=== PATIENT | female | born 1945 | race Caucasian/White ===

== ENCOUNTER → 2017-05-02 | Outpatient (CLI) | payer MEDICARE, SELFPAY | PROVIDERS: Visit Provider Obstetrics & Gynecology Gynecology | DX: Z12.31 Encounter for screening mammogram for malignant neoplasm of breast (principal) | CPT/HCPCS: 77067; G0202 ==

== ENCOUNTER → 2018-05-09 10:12 | Outpatient (CLI) | payer MEDICARE, SELFPAY ==
--- NOTE | 2018-05-09 10:16 | MM_ITS ---
MM Dig screening mamm BI w/CAD CAD Screening COMPARISON: Digital mammograms with CAD 05/02/2017 and 04/15/2016 INDICATION: There is a history of breast cancer in patient's paternal grandmother. TECHNIQUE: Standard CC and MLO images were obtained. R2 CAD reviewed. FINDINGS: Moderate fibroglandular densities are seen in the central portions and upper outer quadrants of both breasts. The findings are bilateral and symmetrical. There is a mole marker right breast. There is minimal arterial calcification in each breast. There is no suspicious lesion and there are no suspicious microcalcifications. IMPRESSION: Fibrofatty parenchyma with no suspicious lesion seen BI-RADS Category: 2 Benign Finding(s) RECOMMENDED FOLLOW-UP: 1YR - 1 YEAR FOLLOW-UP (A letter has been sent to the patient regarding results of the study.)
== END ==
PROVIDERS: PCP Family Medicine; Visit Provider Obstetrics & Gynecology Gynecology
DX: Z12.31 Encounter for screening mammogram for malignant neoplasm of breast (principal)
CPT/HCPCS: 77067

== ENCOUNTER → 2019-06-05 09:43 | Outpatient (CLI) | payer MEDICARE, SELFPAY ==
--- NOTE | 2019-06-05 09:47 | MM_ITS ---
PROCEDURE: MM DIG SCREENING MAMM BI W/CAD CLINICAL INDICATION: SCREENING There is a history of breast cancer patient's paternal grandmother. COMPARISON: [facility] DIG MAMM-SCREEN CHET from 04/15/2016 [facility] DIG MAMM-SCREEN CHET W/CAD from 05/02/2017 [facility] MM Dig screening mamm BI w/CAD from 05/09/2018 TECHNIQUE: Standard CC and MLO images and 3D Tomosinthisis was obtained. R2 CAD reviewed. FINDINGS: Moderate diffuse fibroglandular densities are seen in both breasts. The findings of bilateral and symmetrical. There is minimal arterial calcification in each breast. There is no new or suspicious lesion in either breast and no suspicious microcalcifications. Arnulfo images were reviewed. IMPRESSION: Fibrofatty parenchyma with no suspicious lesions seen BI-RAD Category: 2 Benign Finding(s) FOLLOW-UP: 1YR 1 Year Follow-up (A letter has been sent to the patient regarding results of the study.) Dictated by: Dr. Jaron Marsh MD 06/05/2019 12:[address] Jaron Marsh MD in [place] 06/05/2019 12:38
== END ==
PROVIDERS: PCP Family Medicine; Visit Provider Obstetrics & Gynecology Gynecology
DX: Z12.31 Encounter for screening mammogram for malignant neoplasm of breast (principal)
CPT/HCPCS: 77063; 77067

== ENCOUNTER → 2020-07-03 12:50 | Outpatient (CLI) | payer MEDICARE, SELFPAY ==
--- NOTE | 2020-07-03 12:54 | MM_ITS ---
PROCEDURE: MM DIG SCREENING MAMM BI W/CAD Digital Breast Tomosynthesis Included CLINICAL INDICATION: SCREENING There is a history of breast cancer in the patient's paternal grandmother. COMPARISON: MG [facility] DIG MAMM-SCREEN CHET W/CAD from 05/02/2017 MG [facility] MM Dig screening mamm BI w/CAD from 05/09/2018 MG MM DIG SCREENING MAMM BI W/CAD from 06/05/2019 TECHNIQUE: Standard CC and MLO images and 3D Tomosynthesis was obtained. R2 CAD reviewed. FINDINGS: Moderate diffuse fibroglandular densities are seen in both breasts. There is minimal arterial calcification left breast. There are couple of benign-appearing microcalcifications right breast. There is no suspicious lesion in either breast and no suspicious microcalcifications. CAD markings were reviewed and they appear to be benign. There is no suspicious lesion in either breast and no suspicious microcalcifications. IMPRESSION: Moderate breast density with no suspicious lesions seen BI-RAD Category: 2 Benign Finding(s) FOLLOW-UP: 1YR 1 Year Follow-up (A letter has been sent to the patient regarding results of the study.) Dictated by: Dr. Jaron Marsh MD 07/06/2020 21:26 Dr. Jaron Marsh MD in [place] 07/06/2020 21:26
== END ==
PROVIDERS: PCP Family Medicine; Visit Provider Obstetrics & Gynecology Gynecology
DX: Z12.31 Encounter for screening mammogram for malignant neoplasm of breast (principal)
CPT/HCPCS: 77063; 77067

== ENCOUNTER → 2020-12-15 09:24 | Outpatient (CLI) | payer MEDICARE, SELFPAY ==
--- NOTE | 2020-12-15 09:31 | US_ITS ---
PROCEDURE: US KIDNEY CLINICAL INDICATION: STAGE 3B CHRONIC KIDNEY DISEASE COMPARISON: No exams were available for comparison FINDINGS: The right kidney is 9xx4 cm. There is bilateral renal cortical thinning. No hydronephrosis or renal mass. Cortical scars are noted. Unremarkable echogenicity. The left kidney is 8 x 4 x 4 cm. Cortical scarring and cortical thinning noted. No hydronephrosis or renal mass. IMPRESSION: Bilateral renal cortical scarring and thinning. Dictated by: Tin Brush MD 12/15/2020 15:20 Tin Brush MD in [place] 12/15/2020 15:20
--- NOTE | 2020-12-15 09:39 | CA_ITS ---
APPROVED REPORT Senior Sous Chef: SHARON Study Quality: Adequate Indications: Stage 3 chronic kidney disease Risk Factors Hypertension Hyperlipidemia Renal Artery Doppler Origin (R) 280.6/ cm/sec Proximal (R) 280.6/ cm/sec Mid (R) 111.2/ cm/sec Distal (R) 122.8/ cm/sec Renal Aorta Ratio (R) 2.62 Segmental A. (R) 43.2/14.4 cm/sec RI: 0.66 Segmental A. Sup (R) 38.4/12.5 cm/sec Segmental A. Mid (R) 43.2/14.4 cm/sec Segmental A. Inf (R) 31.7/11.5 cm/sec Origin (L) 144.8/ cm/sec Proximal (L) 81.9/ cm/sec Mid (L) 67.9/ cm/sec Distal (L) 102.6/ cm/sec Renal Aorta Ratio (L) 1.35 Segmental A. (L) 64.9/24.7 cm/sec RI: 0.61 Segmental A. Sup (L) 45.3/13.4 cm/sec Segmental A. Mid (L) 63.9/20.6 cm/sec Segmental A. Inf (L) 64.9/24.7 cm/sec Renal Measurements Kidney Size (R) 8.3x5.4 cm Cortical Thickness (R) 1.1 cm Kidney Size (L) 7.2x5.3 cm Cortical Thickness (L) 1.1 cm Findings Study suggests >60% stenosis of the right renal artery. Study suggests no stenosis of the left renal artery. Conclusion Study suggests >60% stenosis of the right renal artery. Study suggests no stenosis of the left renal artery. Electronically signed by : Tin Brush MD 12/15/2020 17:05:30
== END ==
PROVIDERS: PCP Family Medicine; Visit Provider Family Medicine
DX: N18.32 Chronic kidney disease, stage 3b (principal); I10 Essential (primary) hypertension
CPT/HCPCS: 76770; 93976

== ENCOUNTER → 2021-01-13 10:42 | Outpatient (CLI) | payer MEDICARE, SELFPAY ==
--- NOTE | 2021-01-13 10:45 | CA_ITS ---
APPROVED REPORT EXAM: Comprehensive 2D, Doppler, and color-flow Echocardiogram Bean Dumper: Lisa Hernandez RVT Ht: 5 ft 3 in Wt: 155lbs BSA: 1.74 BP: 133/76 mmHg Indications: CP,ABN EKG,SOA,HTN,HLD 2D Dimensions LVOT 1.94 cm (M/F) 1.5-2.5 LA Volume 25.60 mL LA Volume Index 14.79 mL/m2 (M/F) 16-34 M-Mode Dimensions RVDd 2.14 cm (0.9-2.6) LA Diam 3.67 cm (1.9-4.0) LVDd 4.22 cm (3.5-5.7) Ao Diam 2.84 cm (2.0-3.7) LVDs 2.54 cm (3.5-5.7) IVSd 1.57 cm (0.6-1.1) PWd 0.77 cm (0.6-1.1) EF (Teich) 70.80% FS 39.80% EDV (Teich) 79.50 mL TAPSE 1.72 (<1.7) ESV (Teich) 23.20 mL LV Diastology E Decel Time 173.00 (160-240 msec) E/A Ratio 0.9 MED E' 5.40 (< 7 cm/sec) E'/MED E' Ratio 12.63 (>14) LAT E' 7.90 (<10 cm/sec) E/LAT E' Ratio 8.63 (>14) Mitral Valve MV E Max Alexandr. 68.00 (40-130 cm/s) MV A Velocity 79.00 (40-130 cm/s) E/A Ratio 0.86 MV Decel. Time 173.00 (160-240 ms) MV PHT 51.00 ms Pulmonary Valve PV Peak Velocity 98.00 (50-150 cm/s) Tricuspid Valve TR P. Velocity 241.00 cm/s RAP Estimate 10.00 mmHg RVSP 33.30 mmHg Left Ventricle Left atrium is mildly enlarged, left ventricle is normal size, mild concentric left ventricular hypertrophy, visually estimated ejection fraction 55% with no regional wall motion abnormality, grade 1 diastolic dysfunction seen without tissue Doppler evidence of raise left atrial pressure. Right Ventricle Right atrium and right ventricle are normal size and contractility. Aortic Valve Aortic valve is minimally thickened and fibrosed, there is no aortic stenosis or aortic insufficiency. Mitral Valve Mitral valve leaflets are minimally thickened, there is mild mitral regurgitation. Tricuspid Valve Tricuspid grossly normal, there is mild tricuspid rotation, tricuspid regurgitation jet velocity is inadequate for calculation of the right ventricular systolic pressure. Pulmonic Valve Pulmonic valve is poorly visualized. Great Vessels Repeat is normal size. Inferior vena cava is not well visualized. Pericardium No significant pericardial effusion noted. Conclusion 1. Mildly enlarged left atrium, normal left ventricular size, mild concentric left ventricular hypertrophy, visually estimated ejection fraction 55% with no regional wall motion abnormality, grade 1 diastolic dysfunction seen without tissue Doppler evidence of raise left atrial pressure. 2. Mild mitral and tricuspid regurgitation. 3. No significant pericardial effusion noted. Electronically signed by : Pelon Millan MD 01/14/2021 14:59:58
--- NOTE | 2021-01-13 11:15 | NM_ITS ---
APPROVED REPORT Exam: Nuclear Stress Test Indication: HTN, HYPERLIPIDEMIA, FM HX, C.P., SOB, FATIGUE, ABN EKG Patient Location: Outpatient Stress Tech: Ritika Gaytan NM Tech:Vijaya Denny, ARRT, RT (R)(N) Ht: 5 ft 3 in Wt: 156 lbs Bra Size: B HR: 77 bpm BP: 145/78 mmHg BSA: 1.74 m2 BMI: 27.6 History: HTN, HYPERLIPIDEMIA, FM HX, C.P., SOB, FATIGUE, ABN EKG Procedure: Patient received a 0.4 mg of intravenous Lexiscan, resting heart rate 77 bpm, resting blood pressure 145/78 mmHg, with Lexiscan maximum heart rate achived was 91 bpm which is Less than 85 % of the maximum predicted heart rate and blood pressure was 135/74 mmHg. With Lexiscan, patient denied any complaint of chest pain. Electrocardiogram Resting electrocardiogram showed sinus rhythm, with Lexiscan there is less than 1.[address] segment depression noted from the baseline EKG. The EKG portion of the Lexiscan is nondiagnostic. Cardiac Stress and Resting SPECT Images: Cardiac Stress and Resting SPECT images were obtained using technetium 99m Myoview 31.4 mCi stress and 10.64 mCi at rest. Gated SPECT for analysis of segmental wall motion and calculation of the ejection fraction also done, prone images were also obtained. Cardiac stress and resting SPECT images show uniform myocardial activity without segmental perfusion abnormality, computer derived ejection fraction is 54% with no regional wall motion abnormality, right ventricle is normal size and contractility, however there is transient ischemic dilatation of the left ventricle seen, raising the concerns for presence of balanced ischemia. Conclusion: 1. The EKG portion of the Lexiscan is nondiagnostic. 2. No scintigraphic evidence of reversible ischemia seen, compared right ejection fraction 54% with no regional wall motion abnormality, right ventricle is normal size and contractility, there is transient ischemic dilatation of the left ventricle seen, raising the concerns of presence of balanced ischemia, other causes for transient ischemic dilatation includes hypertensive heart disease, elevated left ventricular end-diastolic pressure, microvascular disease and diabetes mellitus. Clinical correlation is recommended. 3. Abnormal Lexiscan Myoview study. Electronically signed by : Pelon Millan MD 01/14/2021 10:43:42
--- NOTE | 2021-01-13 13:41 | HMH.ITSHM ---
Current Home Medications as stated by this patient Evi Nicole or correspondence representative. []NAPROXEN LEVOTHYROXINE LOSARTAN CITALOPRAM ATORVASTATIN AMLODIPINE
--- NOTE | 2021-01-13 14:17 | CA_ITS ---
APPROVED REPORT Exam: Pharmacologic Technologist: Dalia Moreno, Ht: 5 ft 3 in Wt: 155 lbs BSA: 1.74 m2 HR: 69 bpm BP: 145/78 mmHg Medical History Medications: Levothyroxine,,,,, Vitamin E,,,,, Losartan,,,,, Atorvastatin,,,,, Citalopram,,,,, Naproxen,,,,, CQ10,,,,, Lactobacillus,,,,, AmOLODIPine,,,,, Stress Test Details Test: LEXISCAN HR Resting HR: 77 bpm Max Heart Rate (APMHR): 147.527052 bpm Max HR Achieved: 99 bpm Target HR (85% APMHR): 124.712871 bpm % of APMHR: 67.35 Recovery HR: 87 bpm BP Resting BP: 145/78 mmHg Max BP: 145/78 mmHg Recovery BP: 132.0/75.0 mmHg ECG Resting ECG: NSR, RAD, ST-T abns inferiorly and laterally Clinical Exercise duration: 04:05 min Highest Stage Achieved: Stress ECG Conclusion Symptoms: SOA, malaise, mild stomach discomfort, mild MORRISON. No CP. Arrythmias/Ectopy: None. ST-T Changes: No significant changes. Conclusion: Unremarkable Lexiscan stress. Myoview images reported separately. Electronically signed by : Pelon Millan MD 01/14/2021 10:39:21
== END ==
PROVIDERS: PCP Family Medicine; Visit Provider Urology
DX: E78.5 Hyperlipidemia, unspecified (principal); I10 Essential (primary) hypertension; I70.1 Atherosclerosis of renal artery; I73.9 Peripheral vascular disease, unspecified; R93.429 Abnormal radiologic findings on diagnostic imaging of unspecified kidney; R94.31 Abnormal electrocardiogram [ECG] [EKG]
CPT/HCPCS: 78452; 93017; 93306; A9502; J2785

== ENCOUNTER → 2021-01-19 09:38 | Outpatient (CLI) | payer MEDICARE, SELFPAY | PROVIDERS: PCP Family Medicine; Visit Provider Nurse Practitioner | DX: Z20.822 Contact with and (suspected) exposure to COVID-19 (principal) | CPT/HCPCS: C9803; U0003; U0005 ==

== ENCOUNTER → 2021-01-26 12:36 | Outpatient (CLI) | payer MEDICARE, SELFPAY ==
[2021-01-26 13:00] LABS: Basophils # 0.1 K/mm3 (0-0.2); Basophils % 0.8 % (0.1-2.0); Eosinophils # 0.3 K/mm3 (0.0-0.4); Eosinophils % 3.2 % (0.1-12.0); Hemoglobin 13.5 g/dL (12.2-16.2); Lymphocytes # 0.8 K/mm3 (0.7-4.5); Lymphocytes % 9.8 % (10-50); Mean Corpuscular Hemoglobin 30.1 pg (27.0-31.2); Mean Corpuscular Volume 94.1 fl (81-99); Mean Platelet Volume 7.8 fl (7.4-10.4); Monocytes # 0.5 K/mm3 (0.1-1.0); Monocytes % 6.8 % (1.7-9.3); Neutrophils # 6.3 K/mm3 (1.8-7.8); Neutrophils % 79.3 % (37.0-80.0); Platelet Count 312 K/mm3 (142-424); Red Blood Count 4.47 M/mm3 (4.20-5.40); Red Cell Distribution Width 15.1 % (11.5-17.5)
[2021-01-26 13:15] LABS: Chloride 104 mmol/L (98-107)
[2021-01-26 13:16] LABS: Potassium 4.7 mmoL/L (3.5-5.1); Sodium 140 mmol/L (136-145)
[2021-01-26 13:19] LABS: Anion Gap 16.7 mEq/L (5-15); Blood Urea Nitrogen 17 mg/dl (7-17); Calcium 9.3 mg/dl (8.4-10.2); Carbon Dioxide 24 mmol/L (22.0-30.0); Estimated Glomerular Filt Rate 44 ml/min (>60); GFR (African American) 53 ML/MIN (>60); Glucose 137 mg/dl (74-100)
== END ==
PROVIDERS: Urology; Visit Provider Internal Medicine
DX: E78.5 Hyperlipidemia, unspecified (principal); I10 Essential (primary) hypertension; I70.1 Atherosclerosis of renal artery; I73.9 Peripheral vascular disease, unspecified; R93.429 Abnormal radiologic findings on diagnostic imaging of unspecified kidney; R94.31 Abnormal electrocardiogram [ECG] [EKG]; Z01.812 Encounter for preprocedural laboratory examination; Z20.822 Contact with and (suspected) exposure to COVID-19
CPT/HCPCS: 36415; 80048; 85025; C9803; U0003; U0005

== ENCOUNTER 2021-01-27 09:16 | Day surgery (SDC) | payer MEDICARE, SELFPAY ==
[2021-01-27] VITALS (11 sets, daily range): BP systolic 128–154; BP diastolic 73–95; PULSE 69–79; RESP 18; O2SAT 90–97; BMI 25.7
--- NOTE | 2021-01-27 | IR_ITS ---
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 Estimated Blood Loss: less than 10 ml TECHNIQUE One percent lidocaine used to anesthetize the right anterior aspect of the wrist. The right radial artery was accessed via the Seldinger technique. A 6 Latvian sheath was placed in the right radial artery. 2.5 mg of verapamil, 800 mcg of nitroglycerin, 1mg Lidocaine and 5000 U Heparin were given through the arterial sheath. The ultra catheter was also used to perform left heart catheterization, left ventriculogram and selective coronary angiogram. The same catheter was used to perform bilateral selective renal angiography at the end of the procedure the sheath was removed good hemostasis was achieved using Traclet band, patient was transferred to the postop holding area in stable condition. ANGIOGRAPHIC RESULTS The left main artery Normal The left anterior descending artery Normal The circumflex artery Normal The right coronary artery Dominant normal The LORD ventriculogram reveals Hyperdynamic 75% The left ventricular end-diastolic pressure 20 mmHg Right renal artery singular normal Left renal artery singular normal The abdominal aorta is highly tortuous with no aneurysmal dilatation IMPRESSION Normal coronary arteries Hyperdynamic ventricle consistent with hypertensive heart disease Elevated LVEDP consistent with diastolic dysfunction from hypertensive heart disease Normal renal arteries Tortuous abdominal aorta PLAN 1. Treat hypertension and diastolic dysfunction Electronically signed by : Willy Daniels MD 01/27/2021 11:38:37
== END 2021-01-27 13:13 | disposition home or self-care (01) ==
LOC: CATHLAB 09:20
PROVIDERS: PCP Family Medicine; Visit Provider Internal Medicine
DX: R94.39 Abnormal result of other cardiovascular function study (principal); I70.1 Atherosclerosis of renal artery; I11.9 Hypertensive heart disease without heart failure; Z79.899 Other long term (current) drug therapy; E03.9 Hypothyroidism, unspecified; Z82.49 Family history of ischemic heart disease and other diseases of the circulatory system; R94.31 Abnormal electrocardiogram [ECG] [EKG]; R93.421 Abnormal radiologic findings on diagnostic imaging of right kidney; R93.422 Abnormal radiologic findings on diagnostic imaging of left kidney
CPT/HCPCS: 36252; 93458; 99152; C1725; C1769; J1644; Q9967

== ENCOUNTER → 2021-03-18 13:35 | Outpatient (CLI) | payer MEDICARE, SELFPAY ==
[2021-03-18 14:08] LABS: Basophils # 0.1 K/mm3 (0-0.2); Basophils % 1.2 % (0.1-2.0); Eosinophils # 0.3 K/mm3 (0.0-0.4); Hematocrit 39.6 % (37.0-47.0); Lymphocytes # 0.6 K/mm3 (0.7-4.5); Lymphocytes % 11.1 % (10-50); Mean Corpuscular HGB Conc 32.7 g/dL (31.8-35.4); Mean Corpuscular Hemoglobin 30.5 pg (27.0-31.2); Mean Corpuscular Volume 93.1 fl (81-99); Mean Platelet Volume 8.2 fl (7.4-10.4); Monocytes # 0.4 K/mm3 (0.1-1.0); Monocytes % 6.9 % (1.7-9.3); Neutrophils # 4.2 K/mm3 (1.8-7.8); Neutrophils % 74.9 % (37.0-80.0); Platelet Count 314 K/mm3 (142-424); Red Blood Count 4.26 M/mm3 (4.20-5.40); White Blood Count 5.7 K/mm3 (4.8-10.8)
[2021-03-18 14:36] LABS: Chloride 103 mmol/L (98-107); Potassium 4.3 mmoL/L (3.5-5.1); Sodium 137 mmol/L (136-145)
[2021-03-18 14:38] LABS: Blood Urea Nitrogen 22 mg/dl (7-17); Estimated Glomerular Filt Rate 44 ml/min (>60); GFR (African American) 53 ML/MIN (>60)
[2021-03-18 14:39] LABS: Alanine Aminotransferase 17 U/L (12-78); Albumin Level 4.4 g/dl (3.5-5.0); Alkaline Phosphatase 75 U/L (38-126); Anion Gap 13.3 mEq/L (5-15); Aspartate Amino Transferase 27 U/L (14-36); Bilirubin,Direct 0.3 mg/dl (0.0-0.4); Bilirubin,Total 0.3 mg/dl (0.2-1.3); Calcium 9.4 mg/dl (8.4-10.2); Carbon Dioxide 25 mmol/L (22.0-30.0); Chol/HDL Ratio 2.3 (1-3.5); Cholesterol 187 mg/dl (140-200); Glucose 110 mg/dl (74-100); HDL Cholesterol 82 mg/dl (40-60); Triglycerides 97 mg/dl (30-150); VLDL Cholesterol 19 mg/dL (0-40)
[2021-03-18 15:08] LABS: Thyroid Stimulating Hormone 0.73 uIU/mL (0.465-4.68)
[2021-03-18 15:13] LABS: Free T4 (Free Thyroxine) 1.46 ng/dl (0.78-2.19)
== END ==
PROVIDERS: Visit Provider Internal Medicine
DX: I11.9 Hypertensive heart disease without heart failure; E78.5 Hyperlipidemia, unspecified; R94.31 Abnormal electrocardiogram [ECG] [EKG]
CPT/HCPCS: 36415; 80048; 80061; 80076; 84439; 84443; 85025

== ENCOUNTER → 2021-10-25 10:17 | Outpatient (CLI) | payer MEDICARE, SELFPAY ==
--- NOTE | 2021-10-25 10:22 | XR_ITS ---
FINAL REPORT CLINICAL HISTORY: CHRONIC ANKLE PAIN- NO INJURY FINDINGS: RIGHT ANKLE Three views of the right ankle were obtained. There is no acute fracture or dislocation. There is mild and moderate degenerative change which is worse involving the midfoot. There is a plantar calcaneal spur. There is no soft tissue abnormality. IMPRESSION: Mild and moderate degenerative change, worse involving the midfoot. Reviewed, Interpreted and Dictated by Zbigniew Couch III, MD Transcribed by Niocle Lynn Authenticated and [facility]
--- NOTE | 2021-10-25 10:24 | XR_ITS ---
FINAL REPORT CLINICAL HISTORY: CHRONIC RIGHT ANKLE PAIN- NO INJURY FINDINGS: LEFT ANKLE Three views of the left ankle were obtained. There is no acute fracture or dislocation. There is mild and moderate degenerative change which is worse involving the midfoot. There is a plantar calcaneal spur. There is a the a 5 mm loose body superior to the navicular. IMPRESSION: Mild and moderate degenerative change, worse involving the midfoot. Loose body superior to the navicular. Reviewed, Interpreted and Dictated by Zbigniew Couch III, MD Transcribed by Nicole Lynn Authenticated and [facility]
== END ==
PROVIDERS: PCP Family Medicine; Visit Provider Family Medicine
DX: M25.571 Pain in right ankle and joints of right foot (principal); M25.572 Pain in left ankle and joints of left foot
CPT/HCPCS: 73610

== ENCOUNTER → 2021-11-03 12:48 | Outpatient (CLI) | payer MEDICARE, SELFPAY ==
--- NOTE | 2021-11-03 12:51 | MM_ITS ---
PROCEDURE INFORMATION: Exam: MG Bilateral Screening 3D Mammography Exam date and time: 11/03/2021 12:57 PM Age: 76 years old Clinical indication: Screening examination TECHNIQUE: Imaging protocol: Bilateral Screening tomosynthesis and 2D mammography including computer-aided detection (CAD) when performed. COMPARISON: 1. MG MM DIG SCREENING MAMM BI W/CAD 07/03/2020 1:05 PM 2. MG MM DIG SCREENING MAMM BI W/CAD 06/05/2019 10:02 AM FINDINGS: MAMMOGRAPHY: Breast composition: The breasts are heterogeneously dense, which may obscure small masses. Mass: None. Architectural distortion: None. Calcifications: No suspicious calcifications. Asymmetric density: None. Skin thickening: None. Axillary adenopathy: None. IMPRESSION: No mammographic evidence of malignancy. Annual screening is recommended unless otherwise clinically indicated. ASSESSMENT: BI-RADS Category 1: Negative
== END ==
PROVIDERS: PCP Family Medicine; Visit Provider Obstetrics & Gynecology Gynecology
DX: Z12.31 Encounter for screening mammogram for malignant neoplasm of breast (principal)
CPT/HCPCS: 77063; 77067

== ENCOUNTER → 2023-04-18 09:56 | Outpatient (CLI) | payer MEDICARE, SELFPAY ==
--- NOTE | 2023-04-18 09:59 | CA_ITS ---
APPROVED REPORT EXAM: Comprehensive 2D, Doppler, and color-flow Echocardiogram Turner And Former Automatic: Lisa Hernandez RVT Ht: 5 ft 3 in Wt: 154lbs BSA: 1.73 BP: 123/75 mmHg Indications: DD,CP,SOA,HTN,ABN EKG,HTN,HLD 2D Dimensions LA Volume 34.90 mL LA Volume Index 20.17 mL/m2 (M/F) 16-34 M-Mode Dimensions RVDd 3.03 cm (0.9-2.6) LA Diam 2.89 cm (1.9-4.0) LVDd 3.87 cm (3.5-5.7) LVDs 2.65 cm (3.5-5.7) IVSd 1.06 cm (0.6-1.1) PWd 0.64 cm (0.6-1.1) EF (Teich) 60.10% FS 31.50% EDV (Teich) 64.70 mL TAPSE 2.63 (<1.7) ESV (Teich) 25.80 mL LV Diastology E Decel Time 320 (160-240 msec) E/A Ratio 0.6 Aortic Valve ABHI Index 1.49 cm2/m2 AoV Peak Alexandr. 151.0 (50-130 cm/s) AO Peak GR. 9.20 mmHg AO Mean GR. 4.30 (<5 mmHg) AO VTI 30.2 (18-25 cm) ABHI (VTI) 2.63 (2.5-4.5 cm2) Mitral Valve MV E Max Alexandr. 58.0 (40-130 cm/s) MV A Velocity 94.0 (40-130 cm/s) E/A Ratio 0.62 MV PHT 94.0 ms Pulmonary Valve PV Peak Velocity 91.0 (50-150 cm/s) Tricuspid Valve TR P. Velocity 252.00 cm/s RAP Estimate 10.00 mmHg RVSP 35.40 mmHg Left Ventricle The left ventricle is normal size. The left ventricular systolic function is normal. The left ventricular ejection fraction is within the normal range. There is increase in LV wall thickness (IVSd 1.3 cm). There is normal LV segmental wall motion. Transmitral Doppler flow pattern suggests impaired LV relaxation. LVEF is 55%. Right Ventricle The right ventricle is normal size. The right ventricular systolic function is normal. Atria The left atrium size is normal. The right atrium size is normal. There is no Doppler evidence of interatrial shunt. Aortic Valve The aortic valve is mildly thickened. There is no aortic valvular stenosis. No aortic regurgitation is present. Mitral Valve The mitral valve leaflets are mildly thickened. No evidence of mitral valve stenosis. Trace mitral regurgitation. Tricuspid Valve The tricuspid valve leaflets are thin and pliable. Trace tricuspid regurgitation. RVSP is 20-25 mmHg. Pulmonic Valve The pulmonary valve is normal in structure. Trace pulmonic regurgitation. Great Vessels The aortic root is normal in size. The ascending aorta is normal in size. IVC is normal in size and collapses >50% with inspiration. Pericardium There is no pericardial effusion. Other Information Study Quality: Fair Conclusion Normal biventricular systolic function. No significant valvular stenosis or regurgitation. Electronically signed by : Do Llanos MD 04/20/2023 09:57:58
== END ==
PROVIDERS: PCP Family Medicine; Visit Provider Nurse Practitioner
DX: E78.5 Hyperlipidemia, unspecified (principal); I07.1 Rheumatic tricuspid insufficiency; I11.9 Hypertensive heart disease without heart failure; I34.0 Nonrheumatic mitral (valve) insufficiency
CPT/HCPCS: 93306

== ENCOUNTER 2023-06-15 09:31 | Outpatient (CLI) | payer MEDICARE, SELFPAY | END 2023-06-15 23:59 | LOC: RT 09:31 | PROVIDERS: PCP Family Medicine; Visit Provider Nurse Practitioner Family | DX: R41.3 Other amnesia (principal) | CPT/HCPCS: 95819 ==

== ENCOUNTER 2023-06-29 09:57 | Outpatient (CLI) | payer MEDICARE, SELFPAY ==
[2023-06-29 10:36] LABS: Basophils % 0.4 % (0.1-2.0); Eosinophils # 0.2 K/mm3 (0.0-0.4); Eosinophils % 3.8 % (0.1-12.0); Hematocrit 42.5 % (37.0-47.0); Hemoglobin 13.7 g/dL (12.2-16.2); Lymphocytes # 0.6 K/mm3 (0.7-4.5); Lymphocytes % 10.6 % (10-50); Mean Corpuscular HGB Conc 32.2 g/dL (31.8-35.4); Mean Corpuscular Hemoglobin 31.5 pg (27.0-31.2); Mean Corpuscular Volume 97.7 fl (81-99); Mean Platelet Volume 7.7 fl (7.4-10.4); Monocytes # 0.4 K/mm3 (0.1-1.0); Neutrophils # 4.2 K/mm3 (1.8-7.8); Neutrophils % 77.2 % (37.0-80.0); Platelet Count 267 K/mm3 (142-424); Red Blood Count 4.35 M/mm3 (4.20-5.40); Red Cell Distribution Width 14.6 % (11.5-17.5); White Blood Count 5.4 K/mm3 (4.8-10.8)
[2023-06-29 10:49] LABS: Alanine Aminotransferase 17 U/L (12-78); Albumin Level 4.2 g/dl (3.5-5.0); Albumin/Globulin Ratio 1.8 (1.1-1.8); Alkaline Phosphatase 85 U/L (38-126); Aspartate Amino Transferase 24 U/L (14-36); Bilirubin,Total 0.5 mg/dl (0.2-1.3); Blood Urea Nitrogen 22 mg/dl (7-17); Calcium 9.1 mg/dl (8.4-10.2); Carbon Dioxide 24 mmol/L (22.0-30.0); Chloride 109 mmol/L (98-107); Estimated Glomerular Filt Rate 44 ml/min (>60); GFR (African American) 53 ML/MIN (>60); Globulin 2.3 g/dL (1.3-3.2); Glucose 112 mg/dl (74-100); Potassium 4.2 mmoL/L (3.5-5.1); Total Protein,Serum 6.5 g/dl (6.3-8.2)
[2023-06-29 10:50] LABS: Anion Gap 10.2 mEq/L (5-15); Sodium 139 mmol/L (136-145)
[2023-06-29 10:54] LABS: C-Reactive Protein 0.7 mg/L (0-4)
[2023-06-29 11:34] LABS: Erythrocyte Sedimentation Rate 16 mm/hr (0-30)
[2023-06-29 11:56] LABS: Vitamin B12 233 pg/mL (239-931)
[2023-06-29 11:58] LABS: Folate > 20.00 ng/mL
[2023-06-30 11:34] LABS: Rapid Plasma Reagin Ab Titer Non Reactive titer (NonRea<1:1)
[2023-07-02 10:11] LABS: Antinuclear Antibodies (ANA) Negative
== END 2023-06-29 23:59 ==
LOC: LAB 09:59
PROVIDERS: PCP Family Medicine; Visit Provider Nurse Practitioner Family
DX: R41.3 Other amnesia (principal); Z85.42 Personal history of malignant neoplasm of other parts of uterus; E53.8 Deficiency of other specified B group vitamins
CPT/HCPCS: 36415; 80053; 82607; 82746; 85025; 85651; 86038; 86140; 86225; 86235; 86593

== ENCOUNTER 2023-06-30 08:04 | Outpatient (CLI) | payer MEDICARE, OTHER, SELFPAY ==
--- NOTE | 2023-06-30 08:12 | MR_ITS ---
FINAL REPORT CLINICAL HISTORY: Memory loss, history of cancer FINDINGS: Multiplanar MR imaging of the brain was performed without and with contrast. There is extensive, confluent abnormal signal throughout the deep white matter bilaterally consistent with advanced changes of chronic ischemia. There is no evidence of intracranial hemorrhage or mass. No abnormal extra-axial fluid collection is seen. The ventricular size is within normal limits. There is no evidence of shift of the midline structures. The posterior fossa and brainstem have an unremarkable appearance. No area of abnormal restricted diffusion is identified. No abnormal contrast enhancement is seen. Normal major vessel vascular flow voids are noted. IMPRESSION: No acute intracranial abnormality identified. Advanced changes of chronic ischemia. Reviewed, Interpreted and Dictated by Lloyd Lucero MD Transcribed by Jeanette Cabrera Authenticated and [facility]
[2023-06-30] MEDS: SODIUM CHLORIDE 0.9% 10ML SYR (RAD ONLY) 10 ML IV (08:55)
[2023-06-30] MEDS: GADOTERIDOL INJ 17ML SYRINGE 14 ML IV (08:55)
== END 2023-06-30 23:59 ==
PROVIDERS: PCP Family Medicine; Visit Provider Nurse Practitioner Family
DX: R41.3 Other amnesia (principal); Z85.42 Personal history of malignant neoplasm of other parts of uterus
CPT/HCPCS: 70553; A9576

== ENCOUNTER → 2023-07-04 16:07 | Outpatient (CLI) | payer MEDICARE, SELFPAY | LOC: SL 16:08 | PROVIDERS: PCP Family Medicine; Visit Provider Nurse Practitioner Family | DX: G47.36 Sleep related hypoventilation in conditions classified elsewhere (principal); R06.83 Snoring; R41.3 Other amnesia; G47.9 Sleep disorder, unspecified; R53.83 Other fatigue; G47.30 Sleep apnea, unspecified | CPT/HCPCS: G0399 ==

== ENCOUNTER 2023-08-09 08:37 | Outpatient (CLI) | payer MEDICARE, SELFPAY ==
[2023-08-10 17:09] LABS: Antiparietal Cell Antibody 100.5 Units (0.0-20.0)
== END 2023-08-09 23:59 ==
LOC: LAB 08:38
PROVIDERS: PCP Family Medicine; Visit Provider Specialist
DX: R53.83 Other fatigue (principal); R41.3 Other amnesia; R76.8 Other specified abnormal immunological findings in serum
CPT/HCPCS: 36415; 83516; 86340

== ENCOUNTER 2023-08-21 10:19 | Outpatient (CLI) | payer MEDICARE, SELFPAY ==
[2023-08-21] MEDS: VITAMIN B-12 1,000 MCG 1ML VIAL 1000 MCG (10:25)
[2023-08-21 10:30] VITALS: BP 108/68; PULSE 76; RESP 18; O2SAT 98
== END 2023-08-21 10:30 | disposition home or self-care (01) ==
LOC: INF 10:19
PROVIDERS: PCP Family Medicine; Visit Provider Family Medicine
DX: R53.83 Other fatigue (principal); E53.8 Deficiency of other specified B group vitamins
CPT/HCPCS: 96372

== ENCOUNTER 2023-09-18 10:22 | Outpatient (CLI) | payer MEDICARE, SELFPAY ==
[2023-09-18] MEDS: VITAMIN B-12 1,000 MCG 1ML VIAL 1000 MCG (10:28)
[2023-09-18 10:30] VITALS: BP 118/81; PULSE 80; RESP 18; O2SAT 98
== END 2023-09-18 10:30 | disposition home or self-care (01) ==
LOC: INF 10:22
PROVIDERS: PCP Family Medicine; Visit Provider Family Medicine
DX: E53.8 Deficiency of other specified B group vitamins (principal)
CPT/HCPCS: 96372

== ENCOUNTER 2023-10-11 09:14 | Outpatient (CLI) | payer MEDICARE, SELFPAY ==
[2023-10-11] MEDS: VITAMIN B-12 1,000 MCG 1ML VIAL 1000 MCG IM (09:26)
[2023-10-11 09:27] VITALS: BP 115/77; PULSE 84; RESP 18; TEMP 36.6; O2SAT 97
== END 2023-10-11 09:41 | disposition home or self-care (01) ==
LOC: INF 09:15
PROVIDERS: PCP Family Medicine; Visit Provider Family Medicine
DX: E53.8 Deficiency of other specified B group vitamins (principal)
CPT/HCPCS: J3420; 96372

== ENCOUNTER 2023-10-25 10:00 | Outpatient (CLI) | payer MEDICARE, SELFPAY ==
[2023-10-25] MEDS: VITAMIN B-12 1,000 MCG 1ML VIAL 1000 MCG (10:13)
[2023-10-25 10:15] VITALS: BP 109/69; PULSE 80; RESP 18; O2SAT 97
== END 2023-10-25 10:15 | disposition home or self-care (01) ==
LOC: INF 10:00
PROVIDERS: PCP Family Medicine; Visit Provider Family Medicine
DX: R53.83 Other fatigue (principal)
CPT/HCPCS: 96372; J3420

== ENCOUNTER 2023-11-02 09:47 | Outpatient (CLI) | payer MEDICARE, SELFPAY ==
[2023-11-02] MEDS: VITAMIN B-12 1,000 MCG 1ML VIAL 1000 MCG (09:55)
[2023-11-02 09:57] VITALS: BP 125/69; PULSE 81; RESP 18; TEMP 36.6; O2SAT 100
== END 2023-11-02 09:57 | disposition home or self-care (01) ==
LOC: INF 09:47
PROVIDERS: PCP Family Medicine; Visit Provider Family Medicine
DX: R53.83 Other fatigue (principal)
CPT/HCPCS: 96372; J3420

== ENCOUNTER 2023-11-08 09:51 | Outpatient (CLI) | payer MEDICARE, SELFPAY ==
[2023-11-08] MEDS: VITAMIN B-12 1,000 MCG 1ML VIAL 1000 MCG (10:00)
[2023-11-08 10:01] VITALS: BP 132/77; PULSE 74; RESP 18; O2SAT 96
== END 2023-11-08 10:01 | disposition home or self-care (01) ==
LOC: INF 09:53
PROVIDERS: PCP Family Medicine; Visit Provider Family Medicine
DX: E53.8 Deficiency of other specified B group vitamins (principal)
CPT/HCPCS: 96372; J3420

== ENCOUNTER 2023-11-15 09:46 | Outpatient (CLI) | payer MEDICARE, SELFPAY ==
[2023-11-15 10:10] VITALS: BP 111/63; PULSE 83; RESP 18; TEMP 36.7; O2SAT 98
[2023-11-15] MEDS: VITAMIN B-12 1,000 MCG 1ML VIAL 1000 MCG IM (10:10)
== END 2023-11-15 10:15 | disposition home or self-care (01) ==
LOC: INF 09:46
PROVIDERS: PCP Family Medicine; Visit Provider Family Medicine
DX: E53.8 Deficiency of other specified B group vitamins (principal)
CPT/HCPCS: 96372; J3420

== ENCOUNTER 2023-11-22 09:54 | Outpatient (CLI) | payer MEDICARE, SELFPAY ==
[2023-11-22] MEDS: VITAMIN B-12 1,000 MCG 1ML VIAL 1000 MCG (10:03)
[2023-11-22 10:05] VITALS: BP 113/70; PULSE 84; RESP 18; O2SAT 95
== END 2023-11-22 10:05 | disposition home or self-care (01) ==
LOC: INF 09:55
PROVIDERS: PCP Family Medicine; Visit Provider Family Medicine
DX: R53.83 Other fatigue (principal)
CPT/HCPCS: 96372; J3420

== ENCOUNTER 2023-12-20 09:49 | Outpatient (CLI) | payer MEDICARE, SELFPAY ==
[2023-12-20 10:00] VITALS: BP 113/71; PULSE 68; RESP 20; TEMP 36.6; O2SAT 96
[2023-12-20] MEDS: VITAMIN B-12 1,000 MCG 1ML VIAL 1000 MCG IM (10:00)
== END 2023-12-20 10:15 | disposition home or self-care (01) ==
LOC: INF 09:50
PROVIDERS: PCP Family Medicine; Visit Provider Family Medicine
DX: E53.8 Deficiency of other specified B group vitamins (principal)
CPT/HCPCS: 96372; J3420

== ENCOUNTER 2024-01-17 09:37 | Outpatient (CLI) | payer MEDICARE, SELFPAY ==
[2024-01-17] MEDS: VITAMIN B-12 1,000 MCG 1ML VIAL 1000 MCG IM (09:48)
[2024-01-17 09:50] VITALS: BP 129/82; PULSE 79; RESP 18; TEMP 36.6; O2SAT 99
== END 2024-01-17 09:50 | disposition home or self-care (01) ==
LOC: INF 09:39
PROVIDERS: PCP Family Medicine; Visit Provider Family Medicine
DX: D51.9 Vitamin B12 deficiency anemia, unspecified (principal)
CPT/HCPCS: 96372; J3420

== ENCOUNTER 2024-02-14 09:23 | Outpatient (CLI) | payer MEDICARE, SELFPAY ==
[2024-02-14 09:40] VITALS: BP 116/78; PULSE 83; RESP 18; TEMP 36.6; O2SAT 97
[2024-02-14] MEDS: VITAMIN B-12 1,000 MCG 1ML VIAL 1000 MCG IM (09:40)
== END 2024-02-14 09:40 | disposition home or self-care (01) ==
LOC: INF 09:24
PROVIDERS: PCP Family Medicine; Visit Provider Family Medicine
DX: D51.0 Vitamin B12 deficiency anemia due to intrinsic factor deficiency (principal)
CPT/HCPCS: 96372; J3420

== ENCOUNTER 2024-03-13 09:19 | Outpatient (CLI) | payer MEDICARE, SELFPAY ==
[2024-03-13 09:30] VITALS: BP 98/75; PULSE 81; RESP 17; O2SAT 98
[2024-03-13] MEDS: VITAMIN B-12 1,000 MCG 1ML VIAL 1000 MCG IM (09:30)
== END 2024-03-13 09:40 | disposition home or self-care (01) ==
LOC: INF 09:19
PROVIDERS: PCP Family Medicine; Visit Provider Family Medicine
DX: D51.9 Vitamin B12 deficiency anemia, unspecified (principal)
CPT/HCPCS: 96372; J3420

== ENCOUNTER 2024-04-10 09:27 | Outpatient (CLI) | payer MEDICARE, SELFPAY ==
[2024-04-10] MEDS: VITAMIN B-12 1,000 MCG 1ML VIAL 1000 MCG IM (09:35)
[2024-04-10 09:38] VITALS: BP 140/80; PULSE 82; RESP 18; TEMP 36.6; O2SAT 98
== END 2024-04-10 09:37 ==
LOC: INF 09:28
PROVIDERS: PCP Family Medicine; Visit Provider Family Medicine
DX: D51.0 Vitamin B12 deficiency anemia due to intrinsic factor deficiency (principal)
CPT/HCPCS: 96372; J3420

== ENCOUNTER 2024-05-10 10:01 | Outpatient (CLI) | payer MEDICARE, SELFPAY ==
[2024-05-10] MEDS: VITAMIN B-12 1,000 MCG 1ML VIAL 1000 MCG IM (10:10)
[2024-05-10 10:13] VITALS: BP 126/82; PULSE 86; RESP 18; O2SAT 96
== END 2024-05-10 10:13 | disposition home or self-care (01) ==
LOC: INF 10:02
PROVIDERS: PCP Family Medicine; Visit Provider Family Medicine
DX: D51.9 Vitamin B12 deficiency anemia, unspecified (principal)
CPT/HCPCS: 96372; J3420

== ENCOUNTER 2024-06-07 09:54 | Outpatient (CLI) | payer MEDICARE, SELFPAY ==
[2024-06-07] MEDS: VITAMIN B-12 1,000 MCG 1ML VIAL 1000 MCG IM (10:05)
[2024-06-07 10:10] VITALS: BP 129/75; PULSE 85; RESP 18; TEMP 36.9; O2SAT 95
== END 2024-06-07 10:10 | disposition home or self-care (01) ==
LOC: INF 09:55
PROVIDERS: PCP Family Medicine; Visit Provider Family Medicine
DX: R53.83 Other fatigue (principal); D51.9 Vitamin B12 deficiency anemia, unspecified
CPT/HCPCS: 96372; J3420

== ENCOUNTER 2024-07-03 09:57 | Outpatient (CLI) | payer MEDICARE, SELFPAY ==
[2024-07-03 10:00] VITALS: BP 122/73; PULSE 72; RESP 18; TEMP 36.6; O2SAT 98
[2024-07-03 10:03] VITALS: BMI 27.4
[2024-07-03] MEDS: VITAMIN B-12 1,000 MCG 1ML VIAL 1000 MCG IM (10:04)
[2024-07-03 10:15] VITALS: BP 126/78; PULSE 70; RESP 18; TEMP 36.6; O2SAT 99
== END 2024-07-03 10:10 | disposition home or self-care (01) ==
LOC: INF 09:58
PROVIDERS: PCP Family Medicine; Visit Provider Family Medicine
DX: R53.83 Other fatigue (principal)
CPT/HCPCS: 96372; J3420